=== PATIENT | male | born 1965 | race Caucasian/White ===

== ENCOUNTER → 2017-10-05 10:07 | Outpatient (CLI) | payer OTHER, SELFPAY ==
[2017-10-05 11:53] LABS: T4 (Thyroxine) 6.7 ug/dl (4.7-13.3); Thyroid Stimulating Hormone 1.48 uIU/ml (0.358-3.740)
[2017-10-06 14:54] LABS: Estradiol 14.5 pg/mL (7.6-42.6); Triiodothyronine (T3) Total 108 ng/dL (71-180); Vitamin D 25 Hydroxy 38.7 ng/mL (30.0-100.0)
[2017-10-07 18:03] LABS: Testosterone,Free 5.9 pg/mL (7.2-24.0)
[2017-10-11 16:54] LABS: Testosterone, Total, LC/MS 196.8 ng/dL (264.0-916.0)
== END ==
PROVIDERS: Visit Provider Nurse Practitioner Obstetrics & Gynecology
DX: E03.4 Atrophy of thyroid (acquired) (principal); E34.9 Endocrine disorder, unspecified
CPT/HCPCS: 36415; 82652; 82670; 84402; 84403; 84436; 84443; 84480

== ENCOUNTER → 2017-12-05 10:30 | Outpatient (CLI) | payer OTHER, SELFPAY ==
[2017-12-08 12:34] LABS: Testosterone,Free 34.2 pg/mL (7.2-24.0)
== END ==
PROVIDERS: PCP Internal Medicine Adolescent Medicine; Visit Provider Nurse Practitioner Obstetrics & Gynecology
DX: R53.83 Other fatigue (principal)
CPT/HCPCS: 36415; 82670; 84402; 84403

== ENCOUNTER → 2017-12-25 13:40 | Outpatient (CLI) | payer OTHER, SELFPAY ==
--- NOTE | 2017-12-25 13:44 | XR_ITS ---
XR hip RT 2-3V w/pelvis HISTORY: ITS.REASON: RT HIP PAIN ORDERING PHYSICIAN: Reynaldo Lucia MD PATIENT AGE: 52 years COMPARISON: None FINDINGS: There are mild osteoarthritic changes involving the hips with decrease in joint space medially and osteophyte formation along the infra aspect of the acetabulum. The articular surface of the right femoral head somewhat extends more lateral than expected with minimal concavity involving the lateral aspect of the femoral head which may represent a cam deformity or distal greater deformity of the hip which may be seen with femoral acetabular impingement. No fracture or dislocation. No lytic or blastic change. IMPRESSION: Mild osteoarthritis of the right hip with a subtle pistol-self rising flour mixer/cam deformity of the femoral head which may be seen with femoral acetabular impingement
--- NOTE | 2017-12-25 13:44 | XR_ITS ---
XR knee RT 3V HISTORY: Right anterior and medial knee pain ITS.REASON: RT ANTERIOR KNEE PAIN ORDERING PHYSICIAN: Reynaldo Lucia MD PATIENT AGE: 52 years COMPARISON: None FINDINGS: No fracture or dislocation. No lytic or blastic change. Normal mineralization. No significant arthritic changes evident. No other significant findings IMPRESSION: Negative Knee
== END ==
PROVIDERS: PCP Internal Medicine Adolescent Medicine; Visit Provider Internal Medicine Adolescent Medicine
DX: M25.551 Pain in right hip (principal); M25.561 Pain in right knee
CPT/HCPCS: 73502; 73562

== ENCOUNTER → 2018-01-10 12:35 | Outpatient (CLI) | payer OTHER, SELFPAY ==
--- NOTE | 2018-01-10 12:45 | MR_ITS ---
MR knee RT wo con HISTORY: ITS.REASON: RIGHT ANTERIOR KNEE PAIN ORDERING PHYSICIAN: Reynaldo Lucia MD PATIENT AGE: 52 years Comparison: None TECHNIQUE: Standard multiplanar multiecho sequences are performed without contrast. FINDINGS: The cruciate ligaments, collateral ligaments, patellar tendon, and quadriceps tendon are intact. No obvious meniscal tear. Type I signal intensity is present in the anterior horn lateral meniscus. Transverse linear increased T2 signal present in the posterior horn of the medial meniscus and extends to the medial free edge of the meniscus consistent with a nondisplaced horizontal tear. The patellar cartilage is intact. There is a small amount of fluid in the knee joint. No bone bruise or other significant anomalies evident. No significant degenerative change. IMPRESSION: 1. Nondisplaced horizontal tear involves posterior horn of the medial meniscus extending to the medial free edge of the meniscus. 2. Otherwise negative MRI of the right knee.
--- NOTE | 2018-01-10 12:46 | MR_ITS ---
MR hip RT wo con HISTORY: ITS.REASON: RIGHT HIP PAIN ORDERING PHYSICIAN: Reynaldo Lucia MD PATIENT AGE: 52 years COMPARISON: 12/25/2017 TECHNIQUE: Routine multiplanar multiecho sequences are performed without contrast FINDINGS: There is a small geographic defect involving the 12:00 position of the right femoral head hypointense on T1 and hyperintense on T2 measuring approximately 9 mm. This is subcortical in nature and is suspicious for a small area of avascular necrosis. There are osteoarthritic changes involving both hips which are mild to moderate in nature. Focal area of decreased T1 and slightly increased T2 signal involves the roof of the acetabulum laterally consistent with an area of bone marrow edema. No obvious fracture or dislocation. Small amount fluid is present in both hips and may be physiologic. No abnormal muscle signal evident. No pelvic or soft tissue mass apparent. IMPRESSION: 1. Focal small area of abnormal signal intensity of the right femoral head consistent with an area of avascular necrosis representing Ficat grade 1 AVN 2. Mild osteoarthritis of both hips. There is a small amount of bone marrow edema involving the subarticular region of the right acetabulum laterally.
== END ==
PROVIDERS: PCP Internal Medicine Adolescent Medicine; Visit Provider Internal Medicine Adolescent Medicine
DX: M25.561 Pain in right knee (principal); M25.551 Pain in right hip
CPT/HCPCS: 73721

== ENCOUNTER → 2018-07-16 13:13 | Outpatient (CLI) | payer OTHER, SELFPAY ==
[2018-07-20 06:19] LABS: Testosterone, Total, LC/MS 828.1 ng/dL (264.0-916.0)
== END ==
PROVIDERS: Visit Provider Nurse Practitioner Obstetrics & Gynecology
DX: R53.83 Other fatigue (principal); E03.4 Atrophy of thyroid (acquired); E34.9 Endocrine disorder, unspecified
CPT/HCPCS: 36415; 84402; 84403

== ENCOUNTER → 2018-09-05 07:23 | Outpatient (CLI) | payer SELFPAY ==
--- NOTE | 2018-09-05 07:41 | CT_ITS ---
LCT heart w calcium score HISTORY:. 53 [address] heart w calcium score No family history of family cardiac disease. Nonsmoker. ITS.REASON: SCREENING . No prior studies ORDERING PHYSICIAN Technique: All CT scans at this facility use one or more dose reduction techniques, viz.: automated exposure control, ma/kV adjustment per patient size (including targeted exams where dose is matched to indication, i.e. head) or iterative reconstruction technique. FINDINGS: Coronary calcium score is 0 No identifiable atherosclerotic plaque. Very low cardiovascular risk profile. Very low CVD risk . Limited images submitted of the chest for the calcium score shows normal appearance to the aortic root, normal anatomy right coronary noted. Incidental note is made of a 7 mm nodule at the periphery of the left lower lobe on axial slice 37. Most likely due to a small area of scarring or granulomatous disease but would benefit from follow-up CT chest. IMPRESSION 1. CORONARY CALCIUM SCORE = 0 No identifiable atherosclerotic plaque. . VERY LOW CVD RISK 2. These Limited views of lungs show a small 7 mm pleural-based nodule at periphery of left lower lobe. Most likely incidental benign feature but benefit from follow-up
== END ==
PROVIDERS: PCP Internal Medicine Adolescent Medicine; Visit Provider Internal Medicine Cardiovascular Disease
DX: Z13.6 Encounter for screening for cardiovascular disorders (principal)
CPT/HCPCS: 75571

== ENCOUNTER → 2019-05-31 10:54 | Outpatient (CLI) | payer OTHER, SELFPAY ==
[2019-06-01 09:52] LABS: Estradiol 44.1 pg/mL (7.6-42.6)
[2019-06-04 14:44] LABS: Testosterone, Total, LC/MS 900.5 ng/dL (264.0-916.0); Testosterone,Free 26.7 pg/mL (7.2-24.0)
== END ==
PROVIDERS: Visit Provider Nurse Practitioner Obstetrics & Gynecology
DX: R53.83 Other fatigue (principal); E03.4 Atrophy of thyroid (acquired); E34.9 Endocrine disorder, unspecified
CPT/HCPCS: 36415; 82670; 84402; 84403

== ENCOUNTER → 2019-11-13 15:27 | Outpatient (CLI) | payer OTHER, SELFPAY ==
[2019-11-13 16:36] LABS: Coronavirus 19 IgG Antibody Negative (Negative); Coronavirus 19 IgM Antibody Negative (Negative)
== END ==
PROVIDERS: Visit Provider Otolaryngology
DX: Z01.818 Encounter for other preprocedural examination (principal); C44.309 Unspecified malignant neoplasm of skin of other parts of face; D49.2 Neoplasm of unspecified behavior of bone, soft tissue, and skin
CPT/HCPCS: 36415; 86328

== ENCOUNTER 2019-11-14 12:00 | Day surgery (SDC) | payer SELFPAY ==
[2019-11-05 14:19] VITALS: BMI 29.2
[2019-11-14 11:53] VITALS: BP 135/70; PULSE 83; RESP 16; TEMP 36.7; O2SAT 95
[2019-11-14 11:59] VITALS: BMI 29.2
[2019-11-14 12:25] VITALS: BP 138/75; PULSE 80; RESP 16; TEMP 36.6; O2SAT 98
--- NOTE | 2019-11-14 13:08 | [facility].OPNOTE ---
Date of procedure: 11/14/19 Pre-op Diagnosis:: Neoplasm 3 cm right latter-day Post-op Diagnosis:: same Procedure performed:: Excision of neoplasm right latter-day 3 cm with simple repair Surgeon:: Rd Alicia MD Anesthesia: local Estimated blood loss (mL): 5 Operative findings:: same Operative note:: The right latter-day was prepped and draped. The perilesional area was infiltrated with 2.5 cc of 2% lidocaine containing epinephrine. The lesion on the latter-day was marked out and the lesion measured 3 cm it extended deeply to the temporalis fascia. It was removed in entirety and submitted. Bleeding was stopped with bipolar cautery, blood loss was 5 cc. Surgicel snow was placed in the defect and a simple repair was done with interrupted 4-0 nylon sutures, a Dermabond dressing was applied and the patient was sent to recovery in good general condition. Condition: stable Disposition: PACU Complications:: none
== END 2019-11-14 12:29 ==
LOC: OUTP 12:01
PROVIDERS: PCP Internal Medicine Adolescent Medicine; Visit Provider Otolaryngology
PROC: (CPT 11106; principal; 2019-11-14 12:30)
DX: C44.319 Basal cell carcinoma of skin of other parts of face (principal)
CPT/HCPCS: 11106

== ENCOUNTER → 2021-07-12 16:03 | Outpatient (CLI) | payer OTHER, SELFPAY ==
[2021-07-12 17:08] LABS: Hemoglobin A1C 5.6 % (4.0-6.0)
[2021-07-12 17:33] LABS: Chloride 103 mmol/L (98-107); Potassium 4.4 mmoL/L (3.5-5.1); Sodium 139 mmol/L (136-145)
[2021-07-12 17:34] LABS: Albumin Level 4.2 g/dl (3.5-5.0)
[2021-07-12 17:36] LABS: Anion Gap 9.4 mEq/L (5-15); Blood Urea Nitrogen 26 mg/dl (9-20); Carbon Dioxide 31 mmol/L (22.0-30.0); Estimated Glomerular Filt Rate 52 ml/min (>60); GFR (African American) 63 ML/MIN (>60)
[2021-07-12 17:37] LABS: Calcium 9.4 mg/dl (8.4-10.2); Glucose 106 mg/dl (74-100)
[2021-07-12 18:05] LABS: Hematocrit 50.1 % (42.0-52.0); Hemoglobin 17.5 g/dL (14.1-18.0); Mean Corpuscular HGB Conc 34.9 g/dL (31.8-35.4); Mean Corpuscular Hemoglobin 32.4 pg (27.0-31.2); Mean Corpuscular Volume 92.9 fl (80-94); Platelet Count 258 K/mm3 (142-424); Red Blood Count 5.39 M/mm3 (4.60-6.20)
== END ==
PROVIDERS: PCP Orthopaedic Surgery Adult Reconstructive Orthopaedic Surgery; Visit Provider Orthopaedic Surgery
DX: Z01.812 Encounter for preprocedural laboratory examination (principal); Z11.52 Encounter for screening for COVID-19
CPT/HCPCS: 36415; 80048; 82040; 83036; 85014; 85018; 85048; 85049; C9803; U0003; U0005

== ENCOUNTER → 2021-07-16 12:42 | Outpatient (CLI) | payer OTHER, SELFPAY | PROVIDERS: Visit Provider Orthopaedic Surgery Adult Reconstructive Orthopaedic Surgery | DX: Z01.812 Encounter for preprocedural laboratory examination (principal); Z11.52 Encounter for screening for COVID-19 | CPT/HCPCS: C9803; U0003; U0005 ==

== ENCOUNTER → 2021-11-22 11:29 | Outpatient (CLI) | payer OTHER, SELFPAY ==
[2021-11-22 14:26] LABS: Albumin Level 4.5 g/dl (3.5-5.0); Anion Gap 10.7 mEq/L (5-15); Blood Urea Nitrogen 37 mg/dl (9-20); Calcium 9.2 mg/dl (8.4-10.2); Carbon Dioxide 30 mmol/L (22.0-30.0); Chloride 94 mmol/L (98-107); Estimated Glomerular Filt Rate 37 ml/min (>60); GFR (African American) 44 ML/MIN (>60); Glucose 106 mg/dl (74-100); Potassium 4.7 mmoL/L (3.5-5.1); Sodium 130 mmol/L (136-145)
[2021-11-22 14:36] LABS: Hematocrit 55.9 % (42.0-52.0); Mean Corpuscular HGB Conc 33.3 g/dL (31.8-35.4); Mean Corpuscular Hemoglobin 32.3 pg (27.0-31.2); Mean Corpuscular Volume 97.2 fl (80-94); Platelet Count 248 K/mm3 (142-424); Red Blood Count 5.75 M/mm3 (4.60-6.20); Red Cell Distribution Width 13.3 % (11.5-17.5); White Blood Count 9.3 K/mm3 (4.8-10.8)
[2021-11-22 14:43] LABS: Hemoglobin 18.5 g/dL (14.1-18.0)
[2021-11-22 15:04] LABS: Hemoglobin A1C 5.5 % (4.0-6.0)
== END ==
PROVIDERS: Orthopaedic Surgery; PCP Emergency Medicine; Visit Provider Orthopaedic Surgery Adult Reconstructive Orthopaedic Surgery
DX: Z01.818 Encounter for other preprocedural examination (principal); Z20.822 Contact with and (suspected) exposure to COVID-19
CPT/HCPCS: 36415; 80048; 82040; 83036; 85014; 85018; 85048; 85049; C9803; U0003; U0005

== ENCOUNTER → 2022-01-19 15:53 | Outpatient (CLI) | payer OTHER, SELFPAY ==
[2022-01-31 05:42] LABS: Testosterone, Total, LC/MS 1387.9 ng/dL (264.0-916.0); Testosterone,Free 24.3 pg/mL (7.2-24.0)
== END ==
PROVIDERS: PCP Emergency Medicine; Visit Provider Nurse Practitioner Obstetrics & Gynecology
DX: R53.83 Other fatigue (principal); E03.9 Hypothyroidism, unspecified; E34.9 Endocrine disorder, unspecified
CPT/HCPCS: 36415; 84402; 84403

== ENCOUNTER 2023-08-08 09:28 | Outpatient (CLI) | payer OTHER, SELFPAY ==
[2023-08-08] MEDS: KETOROLAC 30MG/ML VIAL 60 MG (09:48)
== END 2023-08-08 09:54 | disposition home or self-care (01) ==
LOC: INF 09:28
PROVIDERS: Visit Provider Surgery
DX: M54.50 Low back pain, unspecified (principal); M62.830 Muscle spasm of back
CPT/HCPCS: 96372

== ENCOUNTER 2024-07-05 10:33 | Outpatient (CLI) | payer SELFPAY ==
[2024-07-05 10:44] LABS: MANUAL DIFFERENTIAL MANUAL DIFFERENTIAL (MANUAL DIFF)
[2024-07-05 11:55] LABS: Basophils % 0.5 % (0.1-2.0); Eosinophils # 0.1 Kmm3 (0.0-0.4); Eosinophils % 1.2 % (0.1-12.0); Hematocrit 52.7 % (42.0-52.0); Lymphocytes % 25.6 % (10-50); Mean Corpuscular HGB Conc 34.3 g/dL (31.8-35.4); Mean Corpuscular Hemoglobin 30.9 pg (27.0-31.2); Mean Corpuscular Volume 89.9 fl (80-94); Mean Platelet Volume 10.2 fl (7.4-10.4); Monocytes # 0.6 K/mm3 (0.1-1.0); Monocytes % 8.2 % (1.7-9.3); Neutrophils # 4.9 K/mm3 (1.8-7.8); Neutrophils % 64.2 % (37.0-80.0); Platelet Count 232 K/mm3 (142-424); Red Blood Count 5.86 M/mm3 (4.60-6.20); Red Cell Distribution Width 13.4 % (11.5-17.5); White Blood Count 7.7 K/mm3 (4.8-10.8)
[2024-07-05 12:16] LABS: Albumin Level 4.5 g/dl (3.5-5.0); Chloride 102 mmol/L (98-107); Sodium 138 mmol/L (136-145)
[2024-07-05 12:18] LABS: Blood Urea Nitrogen 21 mg/dl (9-20)
[2024-07-05 12:19] LABS: Alanine Aminotransferase 21 U/L (12-78); Albumin/Globulin Ratio 1.4 (1.1-1.8); Alkaline Phosphatase 55 U/L (38-126); Aspartate Amino Transferase 28 U/L (17-59); Bilirubin,Total 0.6 mg/dl (0.2-1.3); Calcium 9.1 mg/dl (8.4-10.2); Carbon Dioxide 31 mmol/L (22.0-30.0); Chol/HDL Ratio 3.7 (1-3.5); Cholesterol 182 mg/dl (140-200); Estimated Glomerular Filt Rate 52 ml/min (>60); GFR (African American) 62 ML/MIN (>60); Globulin 3.3 g/dL (1.3-3.2); Glucose 95 mg/dl (74-100); HDL Cholesterol 49 mg/dl (40-60); Total Protein,Serum 7.8 g/dl (6.3-8.2); Triglycerides 81 mg/dl (30-150); VLDL Cholesterol 16 mg/dL (0-40)
[2024-07-05 12:30] LABS: Direct LDL Cholesterol 101.63 mg/dL (100-129)
[2024-07-05 12:53] LABS: Eosinophils % 3 % (0-3); Lymphocytes % 37 % (10-50); Monocytes % 2 % (2-9); Neutrophils % 58 % (42-76); Platelet Estimate Normal; RBC Morphology Normal; Total Cells Counted 100
[2024-07-05 12:59] LABS: Hemoglobin 18.1 g/dL (14.1-18.0)
[2024-07-06 08:14] LABS: Estradiol 56.4 pg/mL (7.6-42.6); Prolactin 7.3 ng/mL (3.6-25.2); Testosterone,Total 1183 ng/dL (264-916)
== END 2024-07-05 23:59 | disposition home or self-care (01) ==
PROVIDERS: Visit Provider Nurse Practitioner
DX: Z13.9 Encounter for screening, unspecified (principal)
CPT/HCPCS: 36415; 80053; 80061; 82670; 84146; 84403; 85007; 85014; 85018; 85048; 85049

== ENCOUNTER 2024-07-05 11:46 | Outpatient (CLI) | payer SELFPAY ==
--- NOTE | 2024-07-05 12:00 | CT_ITS ---
APPROVED REPORT Bindery Machine Operator: CLINICAL INDICATION Coronary risk evaluation and stratification TECHNIQUE Image Acquisition: A 128 slice MDCT scanner (iDoc24a View) was used for data acquisition. A noncontrast coronary calcium scan was performed. A CT attenuation threshold of 130 Hounsfield units (HU) was used for the detection of calcium in contiguous voxels of 1 sq mm in area to be counted as individual lesions. A tube voltage of 120 KVp was used. The patient received no medications prior to the coronary calcium CT. Image Reconstruction Transaxial images were reconstructed at 0.67 mm slide thickness. Data was reviewed interactively on an advanced workstation capable of 2 and 3-dimensional displays in all conventional reconstruction formats, including multiplanar reformations, maximum intensity projections, curved multiplanar reformations, and volume rendered reconstructions. When applicable, selected routine images describing the relevant coronary anatomy and pathology were saved and sent to PACS. Complications None Technical Quality Overall image quality was good. Total DLP (Dose-Length Product) is 161.9 mGy-cm. The reported value represents the total of one or more individual components during the CT acquisition of this date and at this time, and as such, the same value may appear in more than one CT report depending on the interpreting/reporting physicians. COMPARISON None FINDINGS CT Coronary Calcium Scoring LMA (Left Main Artery) = 0 LAD (Left Anterior Descending) = 4 LCX (Left Coronary Circumflex) = 0 RCA (Right Coronary Artery) = 0 Total Calcium Score = 4 using the AJ-130 method. There is minimal calcification present in the ascending and descending thoracic aorta. IMPRESSION -Coronary artery calcification is present. -Total Calcium Score (Agatston Score) = 4 using the AJ-130 method. -The observed calcium score of 4 is at 32nd percentile for subjects of the same age, sex, and race/ethnicity. -Minimal calcification present in the ascending and descending thoracic aorta. The interpretation of the calcium heart score is based on the following continuum*: 0 = no calcified plaque detected (risk of coronary artery disease is very low ??? less than 5%) 1-10 = calcium detected in extremely minimal levels (risk of coronary diseases is still low ??? less than 10%) 11-100 = mild levels of plaque detected with certainty (mild or minimal narrowing of heart arteries is likely) 101-400 = definite,at least moderate levels of plaque detected (relatively high risk of a heart attack within 3-5 years) >401-999 = extensive levels of plaque detected (high risk of heart attack, high levels of vascular disease are present, high likelihood of at least one significant coronary narrowing) *The calcium heart score quantifies the burden of coronary calcification/plaque in the coronary arteries. The calcium heart score does not evaluate the presence or the burden of non-calcified (i.e. soft) plaque. The coronary and cardiac findings of this Coronary Calcium CT were reviewed, reported, and signed by Clifton Lewis MD (Radiology Therapist). Conclusion Electronically signed by : Linh Lewis MD 07/09/2024 12:05:42
== END 2024-07-05 23:59 | disposition home or self-care (01) ==
PROVIDERS: PCP Nurse Practitioner; Visit Provider Nurse Practitioner
DX: R93.1 Abnormal findings on diagnostic imaging of heart and coronary circulation (principal); Z13.9 Encounter for screening, unspecified
CPT/HCPCS: 75571

== ENCOUNTER 2024-10-16 15:30 | Outpatient (CLI) | payer OTHER, SELFPAY ==
--- OUTSIDE RECORDS SUMMARY | 2024-10-16 15:32 | XMS_ITS | Encounter Summary ---
Author Organization Healthcare Address [address] [place] [address] Care Team Providers Care Pork Cutlet Maker Name Role Phone Reynaldo Lucia MD Primary Care Provider + [phone] Steve Juan MD Primary Care Provider + [phone] Reason for Referral * Consultation (Routine) - Closed Specialty Diagnoses / Procedures Referred By Contac t Referred To Contact Orthopaedic Surgery Diagnoses Right hip pain Avascular necrosis of bone of hip, right (CMS/HCC) Steve Juan MD [address] [place] [id number] Phone: tel: fax: Barry Byrnes MD [address] [address] Phone: tel: fax: Referral ID Status Reason Start Date Expiration Date V isits Requested Visits Authorized [id number] Closed Specialty Services Required 04/12/2021 10/12/2022 1 1 Encounter Details Date Type Department Care Team (Late st Contact Info) Description 04/12/2021 [facility] [address] [place] [address] Steve Juan MD [address] [place] [id number] Right hip pain (Primary Dx); Avascular necrosis of bone of hip, right (CMS/HCC) Social History Tobacco Use Types Packs/Day Years Used Date Smoking Tobacco: Never Alcohol Use Standard Drinks/Week Comments Yes 0 (1 standard drink = 0.6 oz pure alcohol) Alcoholic Drinks/day: Social alcohol use Sex and Gender Information Value Date Recorded Sex Assigned at Not on file Legal Sex Male 7:48 PM EDT Gender Identity Not on file Sexual Orientation Not on file documented as of this encounter Plan of Treatment Scheduled Referrals Name Type Priority Associated Diagnoses Order Schedule Ambulatory Referral to Orthopaedic Surgery Outpatient Referral Routine Right hip pain Avascular necrosis of bone of hip, right (CMS/HCC) Expected: 04/12/2021 (Approximate), Expires: 07/10/2021 documented as of this encounter Visit Diagnoses Diagnosis Right hip pain- Primary Pain in joint, pelvic region and thigh Avascular necrosis of bone of hip, right (CMS/HCC) documented in this encounter Care Teams Pork Cutlet Maker Relationship Specialty Start Date End Date Reynaldo Lucia MD [address] [place] [address] PCP - General 07/24/20 09/30/21 Steve Juan MD [address] [place] [address] PCP - General 10/01/21 documented as of this encounter
--- OUTSIDE RECORDS SUMMARY | 2024-10-16 15:32 | XMS_ITS | Clinical Summary ---
Author Organization [facility] Address [address] [place] [address] Care Team Providers Care White Spooler Name Role Phone Steve Juan MD Primary Care Provider + [phone] Allergies No known active allergies Medications carvedilol (Coreg) 12.5 MG tablet Take 12.5 mg by mouth 2 (two) times a day with meals. Active sildenafil (Revatio) 20 MG tablet Take 20 mg by mouth if needed. Active oxyCODONE (Roxicodone) 5 MG immediate release tablet Take 1 tablet (5 mg total) by mouth every 6 (six) hours if needed for severe pain for up to 30 doses. 30 tablet 2 Active Additional Information Patient not taking.Reported on 12/10/2021 aspirin 81 MG EC tablet Take 1 tablet (81 mg total) by mouth 2 (two) times a day. For 4 weeks post-op for blood clot prevention 56 tablet 2 Active Additional Information Patient not taking.Reported on 12/10/2021 gabapentin (Neurontin) 100 MG capsule Take 1 capsule (100 mg total) by mouth 3 (three) times a day. If this medication makes you drowsy you may take it only at bedtime 30 capsule 2 Active Additional Information Patient not taking.Reported on 12/10/2021 acetaminophen (Tylenol Extra Strength) 500 MG tablet Take 2 tablets (1,000 mg total) by mouth every 8 (eight) hours. 100 tablet 2 Active Additional Information Patient not taking.Reported on 12/10/2021 traMADol (Ultram) 50 MG tablet Take 1 tablet (50 mg total) by mouth every 4 (four) hours if needed for severe pain. 60 tablet 2 Active Additional Information Patient not taking.Reported on 12/10/2021 cephalexin (Keflex) 500 MG capsule Take 1 capsule (500 mg total) by mouth 3 (three) times a day. For 1 week post-op 21 capsule Active Additional Information Patient not taking.Reported on 12/10/2021 Active Problems Problem Noted Date Diagnosed Date Primary osteoarthritis of one hip, right 022 Primary osteoarthritis of hips, bilateral 2021 Overview (04/21/2021): Added automatically from request for surgery [id number] Abnormal Holter monitor finding 04/01/2014 Bigeminy 03/14/2014 Hypertension 03/14/2014 Palpitations 03/14/2014 Family History Medical History Relation Name Comments Hypertension Father Relation Name Status Comments Father Social History Tobacco Use Types Packs/Day Years Used Date Smoking Tobacco: Never Smokeless Tobacco: Never Tobacco Cessation:Counseling Given: Not Answered Alcohol Use Standard Drinks/Week Comments Yes 8 (1 standard drink = 0.6 oz pure alcohol) Alcoholic Drinks/day: Social alcohol use Sex and Gender Information Value Date Recorded Sex Assigned at Not on file Legal Sex Male 7:48 PM EDT Gender Identity Not on file Sexual Orientation Not on file Last Filed Vital Signs Vital Sign Reading Time Taken Comments Blood Pressure 149/92 12/10/2021 12:16 PM EDT Pulse 68 12/10/2021 12:16 PM EDT Temperature 36.4 C (97.6 F) 11/25/2021 1:28 PM EDT Respiratory Rate 14 11/25/2021 1:00 PM EDT Oxygen Saturation 98% 12/10/2021 12:16 PM EDT Inhaled Oxygen Concentration - - Weight 99.4 kg (219 lb 2.2 oz) 12/10/2021 12:16 PM EDT Height 177.8 cm (5' 10 ) 11/25/2021 9:18 AM EDT Body Mass Index 31.44 11/25/2021 9:18 AM EDT Plan of Treatment Health Maintenance Due Date Last Done Comments [facility]-Depression Screening 1963 [facility]-HIV Screening 1963 [facility]-Hepatitis C Screening 1963 [facility]-Infant/Child/Adol SDOH Screenings 1963 [facility]- SDOH Screenings 1981 [facility]-Adult SDOH Screenings 1981 [facility]-DTaP,Tdap,and Td Vaccine s (1 - Tdap) 1982 CT Colonography 2008 Colonoscopy 2008 FIT-DNA 2008 FIT 2008 FOBT 2008 Sigmoidoscopy 2008 [facility]-Colorectal Cancer Screening 2008 [facility]-Pneumococcal Vaccine: 50 + Years (1 of 1 - PCV) 2013 [facility]-Zoster Vaccines (1 of 2) 2013 [id number] Vaccine (2 - 20 season) 2023 03/10/2020 [facility]-Influenza Vaccine (#1) 2024 [facility]-RSV Vaccine: 60+ Years o r (1 - 1-dose 75+ series) 2038 [facility]-Obesity Intervention Completed 12/10/2021 HPV Vaccines Aged Out No longer eligi ble based on patient's age to complete this topic [facility]-HIB Vaccines Aged Out No longer e ligible based on patient's age to complete this topic [facility]-Hepatitis A Vaccines Aged Out No longer eligible based on patient's age to complete this topic [facility]-IPV Vaccines Aged Out No longer e ligible based on patient's age to complete this topic [facility]-Rotavirus Vaccines Aged Out No lo nger eligible based on patient's age to complete this topic Medical Devices Implanted Type Area Farmworker Fruit Device Identifier Shelf Expiration Date Model / Serial / Lot g Shell R3 3 Hole Acet 54mm - [id number] Implanted:Qty: 1 on 11/25/2021 by Barry Byrnes MD at [facility] Hip Right: Hip [employer]-[id number] 08/20/2031 [id number] / / [id number] Liner R3 0 Deg Xlpe Acet 3 - [id number] Implanted:Qty: 1 on 11/25/2021 by Barry Byrnes MD at [facility] Hip Right: Hip [employer]-[id number] 12/22/2030 [id number] / / [id number] Chg Stem Anthology Ho Por Pl H - [id number] Implanted:Qty: 1 on 11/25/2021 by Barry Byrnes MD at [facility] Hip Right: Hip [employer]-[id number] 05/16/2031 [id number] / / [id number] Chg Head Oxinium Fem 02/23 36 - [id number] Implanted:Qty: 1 on 11/25/2021 by Barry Byrnes MD at [facility] Hip Right: Hip [id number] 08/04/2031 [id number] / / [id number] Chg Screw Ref Spher Head 30mm - [id number] Implanted:Qty: 1 on 11/25/2021 by Barry Byrnes MD at [facility] Screw Right: Hip [employer]-[id number] 06/29/2031 [id number] / / [id number] Insurance [facility] Advance Directives * Full Code (Latest Code Status on File) Date Activated Date Inactivated Comments 11/25/2021 9:36 AM 11/25/2021 8:17 PM Question Answer Comments Patient has decision-making capacity? Yes Care Teams White Spooler Relationship Specialty Start Date End Date Steve Juan MD [address] [place] [id number] PCP - General 10/01/21
[2024-10-16 16:39] LABS: Hematocrit 50.4 % (42.0-52.0); Hemoglobin 17.2 g/dL (14.1-18.0); Mean Corpuscular HGB Conc 34.1 g/dL (31.8-35.4); Mean Corpuscular Hemoglobin 30.7 pg (27.0-31.2); Mean Corpuscular Volume 90.0 fl (80-94); Platelet Count 242 K/mm3 (142-424); Red Blood Count 5.60 M/mm3 (4.60-6.20); White Blood Count 7.8 K/mm3 (4.8-10.8)
[2024-10-16 17:20] LABS: Alanine Aminotransferase 25 U/L (12-78); Albumin Level 4.5 g/dl (3.5-5.0); Albumin/Globulin Ratio 1.6 (1.1-1.8); Alkaline Phosphatase 67 U/L (38-126); Anion Gap 15.4 mEq/L (5-15); Aspartate Amino Transferase 38 U/L (17-59); Bilirubin,Total 1.6 mg/dl (0.2-1.3); Blood Urea Nitrogen 11 mg/dl (9-20); Calcium 8.8 mg/dl (8.4-10.2); Carbon Dioxide 26 mmol/L (22.0-30.0); Chloride 97 mmol/L (98-107); Cholesterol 209 mg/dl (140-200); Creatinine,Serum 1.20 mg/dl (0.66-1.25); Estimated Glomerular Filt Rate 62 ml/min (>60); GFR (African American) 74 ML/MIN (>60); Globulin 2.8 g/dL (1.3-3.2); Glucose 64 mg/dl (74-100); HDL Cholesterol 56 mg/dl (40-60); Potassium 4.4 mmoL/L (3.5-5.1); Sodium 134 mmol/L (136-145); Total Protein,Serum 7.3 g/dl (6.3-8.2); Triglycerides 75 mg/dl (30-150)
[2024-10-16 17:50] LABS: Prostate Specific Ag, Diagnost 1.13 ng/ml (0.0-4.0)
[2024-10-16 19:09] LABS: Total Cells Counted 100
[2024-10-16 19:10] LABS: RBC Morphology Normal
== END 2024-10-16 23:59 | disposition home or self-care (01) ==
LOC: LAB 15:30
PROVIDERS: PCP Nurse Practitioner; Visit Provider Nurse Practitioner
DX: Z13.9 Encounter for screening, unspecified (principal)
CPT/HCPCS: 36415; 80053; 80061; 84153; 85007; 85014; 85018; 85048; 85049